=== PATIENT | male | born 1935 | race Caucasian/White ===

== ENCOUNTER 2018-12-23 07:55 | Inpatient (IN) | payer MEDICARE, BC ==
[~2018-12-23] VITALS: Ht 172.7 cm; Wt 81.3 kg
[2018-12-23] MEDS ORDERED: SIMV-259 PO (08:03)
[2018-12-23] MEDS ORDERED: ASPI81 PO (08:03)
[2018-12-23] MEDS ORDERED: AMLO-511 PO (08:03)
[2018-12-23] MEDS ORDERED: METO50 PO (08:03)
[2018-12-23] MEDS ORDERED: SODIUM CHLORIDE 0.9% 1,000 ML IV ONE ×3 (09:00→13:45)
[2018-12-23] MEDS ORDERED: FentaNYL CITRATE-PF 100 MCG/2 ML VIAL IVP ONE ×2 (09:00→13:45)
[2018-12-23] MEDS ORDERED: ONDANSETRON HCL 4 MG/2 ML VIAL IVP ONE (09:00)
[2018-12-23] MEDS ORDERED: IOVERSOL 350 MG/ML 100 ML VIAL ONE (09:07)
[2018-12-23] MEDS ORDERED: SODIUM CHLORIDE 0.9% 0 ML ONE (09:07)
[2018-12-23 09:09] LABS: BASOPHILS % (AUTO) 0.8 % (0.0-2.0); EOSINOPHILS % (AUTO) 0.9 % (1.0-6.0); HEMATOCRIT 38.3 % (41-53); HEMOGLOBIN 12.8 g/dL (13.5-17.5); LYMPHOCYTES # (AUTO) 1.3 K/uL (1.0-4.8); LYMPHOCYTES % (AUTO) 13.9 % (22.0-44.0); MEAN CORPUSCULAR HEMOGLOBIN 29.4 pg (26.0-34.0); MEAN CORPUSCULAR HGB CONC 33.3 G/dL (31.0-37.0); MEAN CORPUSCULAR VOLUME 88 fL (80-100); MONOCYTES # (AUTO) 0.9 K/uL (0.1-1.0); NEUTROPHILS # (AUTO) 6.9 K/uL (1.8-7.7); NEUTROPHILS % (AUTO) 74.4 % (40.0-70.0); PLATELET COUNT (AUTO) 247 K/uL (150-450); RED BLOOD CELL COUNT(AUTO) 4.35 MIL/uL (4.50-5.90); RED CELL DISTRIBUTION WIDTH 15.2 % (11.5-14.5)
[2018-12-23 09:20] LABS: CALCIUM, TOTAL 9.5 mg/dL (8.8-10.5); CREATININE 1.95 mg/dL (0.60-1.30); POTASSIUM 4.8 mmol/L (3.5-5.1)
[2018-12-23 09:26] LABS: ALBUMIN 3.1 g/dL (3.4-5.0); BILIRUBIN,TOTAL 0.7 mg/dL (0.1-1.0); TOTAL PROTEIN, SERUM 7.6 g/dL (6.4-8.2)
[2018-12-23] MEDS ORDERED: BARIUM SULFATE 0.1% SUSPENSION 450 ML BOTTLE PO ONE (09:45)
[2018-12-23 10:01] LABS: LACTIC ACID 1.4 mmol/L (0.4-2.0)
[2018-12-23] MEDS ORDERED: ONDANSETRON HCL 4 MG/2 ML VIAL IVP PRN ×2 (13:45→17:30)
[2018-12-23] MEDS ORDERED: 0.9% SODIUM CHLORIDE 10 ML SYRINGE IVP PRN (13:45)
[2018-12-23] MEDS ORDERED: ACETAMINOPHEN 325 MG TABLET PO PRN ×2 (13:45→17:30)
[2018-12-23 14:17] LABS: APPEARANCE,URINE CLEAR (CLEAR); BILIRUBIN,URINE NEGATIVE (NEGATIVE); GLUCOSE, URINE (UA) NEGATIVE (NEGATIVE); KETONES,URINE 15 mg/dL (NEGATIVE); LEUKOCYTE ESTERASE ,URINE NEGATIVE (NEGATIVE); NITRATE,URINE NEGATIVE (NEGATIVE); OCCULT BLOOD,URINE LARGE (NEGATIVE); PROTEIN,URINE POS 1+ (NEGATIVE); UROBILINOGEN,URINE 0.2 mg/dL (<=1.0)
[2018-12-23 14:24] LABS: BACTERIA,URINE Rare /HPF (None Seen); SQUAMOUS EPITHELIAL CELL,UR Rare /LPF (None Seen); WBC,URINE 0-2 /HPF (0-5)
[2018-12-23 16:45] VITALS: BP 156/92
[2018-12-23] MEDS ORDERED: PNEUMOCOCCAL VACCINE POLYVALENT 0.5 ML VIAL [PPSV23] IM ONE (16:45)
[2018-12-23] MEDS ORDERED: MORPHINE SULFATE 2 MG/ML SYRINGE IVP PRN (17:30)
[2018-12-23] MEDS ORDERED: ZOLPIDEM TARTRATE 5 MG TABLET PO PRN (17:30)
[2018-12-23] MEDS ORDERED: MAGNESIUM HYDROXIDE SUSPENSION 30 ML UDCUP PO PRN (17:30)
[2018-12-23 19:51] VITALS: BP 107/62
[2018-12-23] MEDS: DOCUSATE SODIUM 100 MG CAPSULE PO SCH (21:01)
[2018-12-24 00:38] VITALS: BP 112/63
[2018-12-24 04:37] VITALS: BP 113/62
[2018-12-24 08:00] VITALS: BP 136/73
[2018-12-24] MEDS: SIMVASTATIN 10 MG TABLET PO SCH (09:27)
[2018-12-24] MEDS: ASPIRIN 81 MG CHEWABLE TABLET PO SCH (09:28)
[2018-12-24] MEDS: DOCUSATE SODIUM 100 MG CAPSULE PO SCH ×2 (09:28→21:00)
[2018-12-24] MEDS: PANTOPRAZOLE SODIUM 40 MG DR TABLET PO SCH (09:28)
[2018-12-24] MEDS: AmLODIPine BESYLATE 5 MG TABLET PO SCH (09:28)
[2018-12-24] MEDS: METOPROLOL TARTRATE 50 MG TABLET PO SCH (09:30)
[2018-12-24 19:51] VITALS: BP 101/52
[2018-12-24 23:53] VITALS: BP 98/56
[2018-12-25 05:09] VITALS: BP 126/70
[2018-12-25] MEDS ORDERED: RINGERS SOLUTION,LACTATED 1,000 ML IV ONE (06:30)
[2018-12-25] MEDS ORDERED: SORBITOL IRRIGATION 3,000 ML IRRIG ONE ×4 (07:01→08:39)
[2018-12-25] MEDS ORDERED: CefTRIAXone SODIUM 1 GM/VIAL ONE (08:10)
[2018-12-25] MEDS ORDERED: HYDROmorphone 2 MG/ML SYRINGE IVP PRN (09:00)
[2018-12-25] MEDS ORDERED: FentaNYL CITRATE-PF 100 MCG/2 ML VIAL IVP PRN (09:00)
[2018-12-25] MEDS ORDERED: MEPERIDINE-PF 25 MG/ML VIAL IVP PRN (09:00)
[2018-12-25 09:46] LABS: CALCIUM, TOTAL 8.3 mg/dL (8.8-10.5); CREATININE 2.11 mg/dL (0.60-1.30); POTASSIUM 4.3 mmol/L (3.5-5.1)
[2018-12-25 10:42] VITALS: BP 145/61
[2018-12-25 11:46] VITALS: BP 145/77
[2018-12-25] MEDS: PANTOPRAZOLE SODIUM 40 MG DR TABLET PO SCH (12:32)
[2018-12-25] MEDS: ASPIRIN 81 MG CHEWABLE TABLET PO SCH (12:33)
[2018-12-25] MEDS: DOCUSATE SODIUM 100 MG CAPSULE PO SCH ×2 (12:33→20:40)
[2018-12-25] MEDS: SIMVASTATIN 10 MG TABLET PO SCH (12:33)
[2018-12-25] MEDS: METOPROLOL TARTRATE 50 MG TABLET PO SCH (12:36)
[2018-12-25] MEDS: AmLODIPine BESYLATE 5 MG TABLET PO SCH (12:36)
[2018-12-25] MEDS ORDERED: SODIUM CHLORIDE 0.9% 500 ML IV ONE (12:45)
[2018-12-25 13:03] LABS: MAGNESIUM 1.8 mg/dL (1.80-2.40); PHOSPHORUS 2.4 mg/dL (2.5-4.9)
[2018-12-25] MEDS: HYDROCODONE/ACETAMINOPHEN 5-325 MG TABLET PO PRN (14:33)
[2018-12-25 15:45] VITALS: BP 153/85
[2018-12-25 20:32] VITALS: BP 104/61
[2018-12-25] MEDS: BISACODYL 10 MG RECTAL RECTAL SUPPOSITORY PR PRN (20:40)
[2018-12-26] VITALS (7 sets, daily range): BP systolic 99–141; BP diastolic 53–90
[2018-12-26] MEDS: BISACODYL 10 MG RECTAL RECTAL SUPPOSITORY PR PRN (04:14)
[2018-12-26] MEDS ORDERED: MIDAZOLAM HCL 2 MG/2 ML VIAL IVP ONE (05:44)
[2018-12-26] MEDS ORDERED: KETAMINE HCL 50 MG/ML 10 ML VIAL IVP ONE (05:44)
[2018-12-26] MEDS ORDERED: DEXAMETHASONE SOD PHOS 4 MG/ML VIAL IVP ONE (05:44)
[2018-12-26] MEDS ORDERED: LIDOCAINE/PF 2% 5 ML VIAL IM ONE (05:44)
[2018-12-26] MEDS ORDERED: ONDANSETRON HCL 4 MG/2 ML VIAL IVP ONE (05:44)
[2018-12-26] MEDS ORDERED: PROPOFOL 1% 20 ML VIAL IVP ONE (05:44)
[2018-12-26 06:02] LABS: BASOPHILS % (AUTO) 0.1 % (0.0-2.0); EOSINOPHILS % (AUTO) 0 % (1.0-6.0); HEMATOCRIT 35.2 % (41-53); HEMOGLOBIN 11.6 g/dL (13.5-17.5); LYMPHOCYTES # (AUTO) 1.1 K/uL (1.0-4.8); MEAN CORPUSCULAR HEMOGLOBIN 28.7 pg (26.0-34.0); MEAN CORPUSCULAR HGB CONC 33.1 G/dL (31.0-37.0); MEAN CORPUSCULAR VOLUME 87 fL (80-100); MONOCYTES # (AUTO) 0.9 K/uL (0.1-1.0); MONOCYTES % (AUTO) 5.8 % (2.0-9.0); PLATELET COUNT (AUTO) 253 K/uL (150-450); RED BLOOD CELL COUNT(AUTO) 4.05 MIL/uL (4.50-5.90)
[2018-12-26 06:16] LABS: CALCIUM, TOTAL 8.9 mg/dL (8.8-10.5); CREATININE 1.83 mg/dL (0.60-1.30); POTASSIUM 4.5 mmol/L (3.5-5.1)
[2018-12-26 06:30] LABS: NEUTROPHILS % (AUTO) 87.1 % (40.0-70.0)
[2018-12-26] MEDS: ASPIRIN 81 MG CHEWABLE TABLET PO SCH (08:01)
[2018-12-26] MEDS: SIMVASTATIN 10 MG TABLET PO SCH (08:02)
[2018-12-26] MEDS: AmLODIPine BESYLATE 5 MG TABLET PO SCH (08:02)
[2018-12-26] MEDS: PANTOPRAZOLE SODIUM 40 MG DR TABLET PO SCH (08:02)
[2018-12-26] MEDS: METOPROLOL TARTRATE 50 MG TABLET PO SCH (08:02)
[2018-12-26] MEDS: DOCUSATE SODIUM 100 MG CAPSULE PO SCH ×2 (08:02→20:25)
[2018-12-27 05:20] VITALS: BP 122/83
[2018-12-27 06:13] LABS: BASOPHILS % (AUTO) 0.3 % (0.0-2.0); EOSINOPHILS % (AUTO) 1.3 % (1.0-6.0); HEMATOCRIT 35.8 % (41-53); HEMOGLOBIN 11.6 g/dL (13.5-17.5); LYMPHOCYTES # (AUTO) 1.9 K/uL (1.0-4.8); LYMPHOCYTES % (AUTO) 16.1 % (22.0-44.0); MEAN CORPUSCULAR HEMOGLOBIN 28.6 pg (26.0-34.0); MEAN CORPUSCULAR HGB CONC 32.4 G/dL (31.0-37.0); MEAN CORPUSCULAR VOLUME 89 fL (80-100); MONOCYTES # (AUTO) 1.1 K/uL (0.1-1.0); MONOCYTES % (AUTO) 9.5 % (2.0-9.0); NEUTROPHILS # (AUTO) 8.6 K/uL (1.8-7.7); NEUTROPHILS % (AUTO) 72.8 % (40.0-70.0); PLATELET COUNT (AUTO) 259 K/uL (150-450); RED BLOOD CELL COUNT(AUTO) 4.05 MIL/uL (4.50-5.90); RED CELL DISTRIBUTION WIDTH 15.4 % (11.5-14.5)
[2018-12-27] MEDS: HYDROCODONE/ACETAMINOPHEN 5-325 MG TABLET PO PRN ×2 (06:17→16:30)
[2018-12-27 06:24] LABS: CALCIUM, TOTAL 8.7 mg/dL (8.8-10.5); CREATININE 1.95 mg/dL (0.60-1.30); POTASSIUM 3.9 mmol/L (3.5-5.1)
[2018-12-27 08:10] VITALS: BP 117/63
[2018-12-27] MEDS: PANTOPRAZOLE SODIUM 40 MG DR TABLET PO SCH (08:55)
[2018-12-27] MEDS: ASPIRIN 81 MG CHEWABLE TABLET PO SCH (08:55)
[2018-12-27] MEDS: METOPROLOL TARTRATE 50 MG TABLET PO SCH (08:56)
[2018-12-27] MEDS: DOCUSATE SODIUM 100 MG CAPSULE PO SCH ×2 (08:56→22:49)
[2018-12-27] MEDS: SIMVASTATIN 10 MG TABLET PO SCH (08:56)
[2018-12-27] MEDS: AmLODIPine BESYLATE 5 MG TABLET PO SCH ×2 (08:56→08:57)
[2018-12-27 12:01] VITALS: BP 114/75
[2018-12-27 15:06] VITALS: BP 112/62
[2018-12-27 19:40] VITALS: BP 127/69
[2018-12-27 23:48] VITALS: BP 133/82
[2018-12-28 04:52] VITALS: BP 127/80
[2018-12-28 06:08] LABS: BASOPHILS % (AUTO) 0.5 % (0.0-2.0); HEMATOCRIT 33.3 % (41-53); HEMOGLOBIN 11.1 g/dL (13.5-17.5); LYMPHOCYTES # (AUTO) 1.6 K/uL (1.0-4.8); LYMPHOCYTES % (AUTO) 15.4 % (22.0-44.0); MEAN CORPUSCULAR HEMOGLOBIN 29.1 pg (26.0-34.0); MEAN CORPUSCULAR HGB CONC 33.2 G/dL (31.0-37.0); MEAN CORPUSCULAR VOLUME 88 fL (80-100); MONOCYTES # (AUTO) 1.3 K/uL (0.1-1.0); MONOCYTES % (AUTO) 12.8 % (2.0-9.0); NEUTROPHILS # (AUTO) 7.1 K/uL (1.8-7.7); NEUTROPHILS % (AUTO) 67.3 % (40.0-70.0); PLATELET COUNT (AUTO) 228 K/uL (150-450); RED BLOOD CELL COUNT(AUTO) 3.81 MIL/uL (4.50-5.90); RED CELL DISTRIBUTION WIDTH 15.4 % (11.5-14.5)
[2018-12-28 06:14] LABS: CALCIUM, TOTAL 8.6 mg/dL (8.8-10.5); CREATININE 1.92 mg/dL (0.60-1.30); POTASSIUM 4.3 mmol/L (3.5-5.1)
[2018-12-28 08:33] VITALS: BP 112/70
[2018-12-28] MEDS: METOPROLOL TARTRATE 50 MG TABLET PO SCH (08:40)
[2018-12-28] MEDS: ASPIRIN 81 MG CHEWABLE TABLET PO SCH (08:40)
[2018-12-28] MEDS: DOCUSATE SODIUM 100 MG CAPSULE PO SCH ×2 (08:40→20:39)
[2018-12-28] MEDS: AmLODIPine BESYLATE 5 MG TABLET PO SCH (08:41)
[2018-12-28] MEDS: SIMVASTATIN 10 MG TABLET PO SCH (08:41)
[2018-12-28] MEDS: PANTOPRAZOLE SODIUM 40 MG DR TABLET PO SCH (08:41)
[2018-12-28 11:38] VITALS: BP 109/69
[2018-12-28 16:00] VITALS: BP 108/63
[2018-12-28 19:42] VITALS: BP 109/57
[2018-12-28] MEDS: HYDROCODONE/ACETAMINOPHEN 5-325 MG TABLET PO PRN (21:43)
[2018-12-28 23:20] VITALS: BP 101/58
[2018-12-29 04:35] VITALS: BP 128/68
[2018-12-29] MEDS: HYDROCODONE/ACETAMINOPHEN 5-325 MG TABLET PO PRN ×4 (05:57→22:48)
[2018-12-29] MEDS: BISACODYL 10 MG RECTAL RECTAL SUPPOSITORY PR PRN (06:00)
[2018-12-29 07:10] VITALS: BP 110/70
[2018-12-29] MEDS: ASPIRIN 81 MG CHEWABLE TABLET PO SCH (08:43)
[2018-12-29] MEDS: AmLODIPine BESYLATE 5 MG TABLET PO SCH (08:43)
[2018-12-29] MEDS: DOCUSATE SODIUM 100 MG CAPSULE PO SCH ×2 (08:43→20:08)
[2018-12-29] MEDS: PANTOPRAZOLE SODIUM 40 MG DR TABLET PO SCH (08:43)
[2018-12-29] MEDS: METOPROLOL TARTRATE 50 MG TABLET PO SCH (08:43)
[2018-12-29] MEDS: SIMVASTATIN 10 MG TABLET PO SCH (08:43)
[2018-12-29 11:29] VITALS: BP 128/82
[2018-12-29 15:10] VITALS: BP 113/58
[2018-12-29 19:40] VITALS: BP 95/54
[2018-12-30 00:31] VITALS: BP 113/63
[2018-12-30 04:40] VITALS: BP 118/66
[2018-12-30] MEDS: HYDROCODONE/ACETAMINOPHEN 5-325 MG TABLET PO PRN ×2 (07:35→15:32)
[2018-12-30 08:09] VITALS: BP 114/56
[2018-12-30] MEDS: AmLODIPine BESYLATE 5 MG TABLET PO SCH (08:21)
[2018-12-30] MEDS: METOPROLOL TARTRATE 50 MG TABLET PO SCH (08:21)
[2018-12-30] MEDS: PANTOPRAZOLE SODIUM 40 MG DR TABLET PO SCH (08:21)
[2018-12-30] MEDS: ASPIRIN 81 MG CHEWABLE TABLET PO SCH (08:22)
[2018-12-30] MEDS: SIMVASTATIN 10 MG TABLET PO SCH (08:22)
[2018-12-30] MEDS: DOCUSATE SODIUM 100 MG CAPSULE PO SCH (08:22)
[2018-12-30 11:10] VITALS: BP 107/61
[2018-12-30] MEDS ORDERED: HYDR-4061 PO (15:13)
[2018-12-30 16:01] VITALS: BP 110/57
== END 2018-12-30 16:00 | disposition home or self-care (01) | DRG 668 ==
LOC: EMS 07:56 → 6N 13:21 → 4E 12-25 10:02 → 6N 12-28 16:15
PROVIDERS: ADMIT Internal Medicine; ATTEND Internal Medicine
PROC: 0TBB8ZX Excision of Bladder, Via Natural or Artificial Opening Endoscopic, Diagnostic (ICD-10-PCS; 2018-12-25)
PROC: 0TBB8ZZ Excision of Bladder, Via Natural or Artificial Opening Endoscopic (ICD-10-PCS; principal; 2018-12-25 07:30)
DX: C67.9 Malignant neoplasm of bladder, unspecified (principal); N17.0 Acute kidney failure with tubular necrosis; E44.0 Moderate protein-calorie malnutrition; N13.30 Unspecified hydronephrosis; E78.5 Hyperlipidemia, unspecified; I10 Essential (primary) hypertension; D64.9 Anemia, unspecified; E78.00 Pure hypercholesterolemia, unspecified; E86.0 Dehydration; K21.9 Gastro-esophageal reflux disease without esophagitis; K57.30 Diverticulosis of large intestine without perforation or abscess without bleeding; K59.00 Constipation, unspecified; I25.10 Atherosclerotic heart disease of native coronary artery without angina pectoris; I25.2 Old myocardial infarction; Z95.5 Presence of coronary angioplasty implant and graft; Z79.899 Other long term (current) drug therapy; Z68.27 Body mass index [BMI] 27.0-27.9, adult; Z90.49 Acquired absence of other specified parts of digestive tract; Z79.82 Long term (current) use of aspirin
CPT/HCPCS: 71250; 72192; 74150; 74176; 76770; 83605; 83735; 84100; 87040; 87086; 88305; 88307; 88331; 88341; 88342; 90732; 93005; 96374; 97162; 99291; G0238; G0378; J0696; J1100; J2250; J2405; J2704; J3010; J3490; J7030; J7040; J7050; J7120